=== PATIENT | female | born 1930 | race Two or more races ===

== ENCOUNTER 2016-11-07 16:53 | Emergency (ER) | payer MEDICARE, OTHER ==
[~2016-11-07] VITALS: Ht 160 cm; Wt 63.5 kg
[~2016-11-07 16:53] MED LIST: ACETAMINOP500 MG/51 ORAL; ACETAMINOPHEN500 M5 PO; AMBIEN5 MG ORAL; BISACODYL10 M1 RC; BISACODYL5 MG ORAL; BISACODYL5 MG RECTAL; CATAPRES0.1 MG ORAL; DOCUSATE SODIU100 MG ORAL; DONEPEZIL HCL5 MG ORAL; LISINOPRIL10 MG ORAL; LORAZEPAM0.5 MG ORAL; NOVOLOG100 UNIT/3 SUBQ; RANITIDINE HCL150 M2 PO; WARFARIN SODIUM1 MG ORAL; WARFARIN SODIUM10 MG ORAL; ZOLPIDEM TARTRAT5 MG ORAL
[2016-11-07 18:08] LABS: BASOPHILS % (AUTO) 0.5 % (0.0-2.0); EOSINOPHILS % (AUTO) 1.1 % (0.0-3.0); LYMPHOCYTES % (AUTO) 12.4 % (20.0-45.0); MEAN CORPUSCULAR HEMOGLOBIN 31.9 PG (27.0-31.0); MEAN CORPUSCULAR HGB CONC 32.8 G/DL (32.0-36.0); MEAN CORPUSCULAR VOLUME 97 FL (80-99); MEAN PLATELET VOLUME 7.8 FL (6.5-10.1); MONOCYTES % (AUTO) 5.8 % (1.0-10.0); NEUTROPHILS % (AUTO) 80.2 % (45.0-75.0); PLATELET COUNT 200 K/UL (150-450); RED CELL DISTRIBUTION WIDTH 11.7 % (11.6-14.8); WHITE BLOOD COUNT 10.7 K/UL (4.8-10.8)
[2016-11-07 18:28] LABS: TROPONIN I < 0.30 ng/mL (<=0.30)
[2016-11-07] MEDS ORDERED: NORCO 5-325 TA1 EACH ORAL (18:51)
[2016-11-07 19:10] VITALS: BP 134/81
[2016-11-07 19:12] VITALS: BP 134/81
--- NOTE | 2016-11-07 23:14 | Emergency Room Report ---
History of Present Illness General Chief Complaint: Pain Source: Family Member Present Illness HPI Patient is a 85-year-old female presented after having increased left-sided pain. The patient noted history of dementia. She is advised to present to the emergency department for evaluation of chest pain. Patient had sharp pain which is worse with palpation. Patient had increased pain with movement. The patient had no known recent falls. Patient was not febrile and had not been vomiting. Allergies: Coded Allergies: No Known Allergies (Unverified , 04/04/16) Patient History Past Medical History: see triage record Reviewed Nursing Documentation: PMH: Agreed, PSxH: Agreed Nursing Documentation-PM Past Medical History: No History, Except For Hx Cardiac Problems: Yes Hx Hypertension: Yes Hx Diabetes: Yes Hx Cancer: No Hx Gastrointestinal Problems: No Hx Neurological Problems: Yes Hx Cerebrovascular Accident: Yes Hx Dementia: Yes Review of Systems All Other Systems: negative except mentioned in HPI Physical Exam Vital Signs Date Time Temp Pulse Resp B/P Pulse Ox O2 Delivery O2 Flow Rate FiO2 11/07/16 17:06 98.6 79 14 157/85 99 Room Air Sp02 EP Interpretation: reviewed, normal General Appearance: normal inspection, well appearing, no apparent distress, alert, GCS 15 Head: atraumatic ENT: normal ENT inspection, hearing grossly normal, normal voice Neck: normal inspection, full range of motion, supple, no bony tend Respiratory: normal inspection, lungs clear, normal breath sounds, no respiratory distress, no retraction, no wheezing Cardiovascular #1: regular rate, rhythm, no edema Gastrointestinal: normal inspection, normal bowel sounds, non tender, soft, no guarding, no hernia Genitourinary: no CVA tenderness Musculoskeletal: normal inspection, back normal, normal range of motion Neurologic: normal inspection, alert, oriented x3, responsive, zoning administrator III-XII nml as tested, speech normal Psychiatric: normal inspection, judgement/insight normal, mood/affect normal Skin: normal inspection, normal color, no rash Medical Decision Making Diagnostic Impression: Primary Impression: Acute chest wall pain ER Course Patient is a 85-year-old female who presented after having increased the left sided chest pain.Differential diagnosis included but was not limited to acute coronary syndrome, pulmonary embolism, pneumonia, aortic dissection, shingles, pneumothorax, aortic dissection, esophageal rupture, pericarditis. Because of complexity of patient's case laboratory testing and imaging studies were ordered. A CT of the chest was ordered which showed a nonspecific changes in the breasts as well as left rib changes. The patient was discussed with Dr.Jimmy Wills who is the patients primary care physician. The patient is advised to follow up with primary care doctor in 1-2 days. Patient is advised to return if any worsening condition or if any changes in status that are concerning. Labs Test 11/07/16 17:45 White Blood Count 10.7 K/UL (4.8-10.8) Red Blood Count 4.60 M/UL (4.20-5.40) Hemoglobin 14.7 G/DL (12.0-16.0) Hematocrit 44.8 % (37.0-47.0) Mean Corpuscular Volume 97 FL (80-99) Mean Corpuscular Hemoglobin 31.9 PG (27.0-31.0) Mean Corpuscular Hemoglobin Concent 32.8 G/DL (32.0-36.0) Red Cell Distribution Width 11.7 % (11.6-14.8) Platelet Count 200 K/UL (150-450) Mean Platelet Volume 7.8 FL (6.5-10.1) Neutrophils (%) (Auto) 80.2 % (45.0-75.0) Lymphocytes (%) (Auto) 12.4 % (20.0-45.0) Monocytes (%) (Auto) 5.8 % (1.0-10.0) Eosinophils (%) (Auto) 1.1 % (0.0-3.0) Basophils (%) (Auto) 0.5 % (0.0-2.0) Troponin I < 0.30 ng/mL (<=0.30) Last Vital Signs Date Time Temp Pulse Resp B/P Pulse Ox O2 Delivery O2 Flow Rate FiO2 11/07/16 19:12 98.6 75 14 134/81 99 Room Air Status: improved Disposition: HOME, SELF-CARE Condition: Stable Scripts Hydrocodone Bit/Acetaminophen 5-325* (NORCO 5-325*) 1 Each Tablet 1 TAB ORAL Q6H Y for For Pain, #20 TAB 0 Refills Prov: Thiago Amador 11/07/16 Patient Instructions: Chest Wall Pain Thiago Amador Nov 07, 2016 23:14
--- NOTE | 2016-11-08 08:37 | Diagnostic Imaging Report ---
Clinical Indication: PAIN Technique: Spiral acquisitions obtained through the chest. No IV contrast utilized, reason not stated. Multiplanar reconstructions generated. Total dose length product 420 mGycm. CTDIvol(s) 15 mGy Comparison: None Findings:The lungs demonstrate posterior dependent atelectatic changes. There is minimal pleural thickening in the apices bilaterally. No infiltrates, effusions, congestion, masses, or nodules. The heart size is normal. There is minimal posterior wall pericardial thickening or fluid. The ascending thoracic aorta is ectatic but not frankly aneurysmal, measuring 3.5 cm diameter. No mediastinal or hilar mass or adenopathy. A right thyroid lobe demonstrates a 12 mm low-attenuation nodule. There is also calcification in the inferior right thyroid lobe. The breasts demonstrate multiple macrocalcifications. No axillary or chest wall mass or adenopathy. The bones are unremarkable. The included upper abdominal anatomy demonstrates evidence of prior cholecystectomy. The stomach is distended with fluid and food. A granulomatous calcification is seen within spleen Impression: Posterior dependent atelectatic changes. No acute pulmonary process otherwise Posterior wall pericardial thickening versus fluid Ectatic but not frankly aneurysmal ascending thoracic aorta, measures 3.5 cm diameter 12 mm right thyroid lobe nodule. 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 Smith The CT scanner at [facility] is accredited by the [employer] and the scans are performed using protocols designed to limit radiation exposure to as low as reasonably achievable to attain images of sufficient resolution adequate for diagnostic evaluation.
--- NOTE | 2016-11-08 15:03 | Cardiology Report ---
APPROVED REPORT EKG Measurement Heart [id number] Normal sinus rhythm Possible Anterior infarct, age undetermined Abnormal ECG
== END 2016-11-07 19:12 | disposition home or self-care (01) ==
LOC: EMR 17:45 → EDBEDREQ 19:07 → CANBEDREQ 19:08 → EMR 19:12
DX: R07.89 Other chest pain (principal); F03.90 Unspecified dementia, unspecified severity, without behavioral disturbance, psychotic disturbance, mood disturbance, and anxiety; I10 Essential (primary) hypertension; E11.9 Type 2 diabetes mellitus without complications; Z86.73 Personal history of transient ischemic attack (TIA), and cerebral infarction without residual deficits
CPT/HCPCS: 36415; 71250; 84484; 85025; 93005; 99284